=== PATIENT | male | born 1975 | race American Indian/Alaskan Native ===

== ENCOUNTER 2017-11-16 03:21 | Emergency (ER) | payer MEDICARE ==
[2017-11-16 07:01] LABS: Bilirubin,Urine NEG (Negative); Blood,Urine NEG (Negative); Color,Urine Yellow (Yellow); Mucus,Urine FEW /HPF; Protein,Urine <15 mg/dL mg/dL (Negative); Urobilinogen,Urine < 2.0 mg/dL (<2.0)
[2017-11-16 07:12] LABS: Benzodiazepines Screen,Urine PRESUMPTIVE NEGATIVE; Methadone Screen,Urine PRESUMPTIVE NEGATIVE; Opiate Screen,Urine PRESUMPTIVE NEGATIVE
[2017-11-16 07:27] LABS: Amphetamine Screen,Urine PRESUMPTIVE POSITIVE; Cannabinoid Screen,Urine PRESUMPTIVE POSITIVE; Cocaine Screen,Urine PRESUMPTIVE POSITIVE
[2017-11-16 07:57] LABS: Hemoglobin 13.2 gm/dl (11.8-15.2); Mean Corpuscular HGB Conc 33 % (32-34); Mean Corpuscular Hemoglobin 28 pg (28-32); Mean Corpuscular Volume 84 fl (84-94); Red Blood Count 4.78 M/mm3 (3.65-5.03); Red Cell Distribution Width 15.2 % (13.2-15.2)
[2017-11-16 08:07] LABS: BUN/Creatinine Ratio 11; Blood Urea Nitrogen 8 mg/dL (9-20); Calcium 8.6 mg/dL (8.4-10.2); Hemolysis Index 2
[2017-11-16 08:30] LABS: Alanine Aminotransferase 88 units/L (7-56); Albumin 3.4 g/dL (3.9-5)
[2017-11-16 08:35] LABS: Bilirubin,Direct < 0.2 mg/dL (0-0.2)
[2017-11-16 10:01] LABS: Anisocytosis 1+; Basophils % (Manual) 0 % (0.0-1.8); Total Cells Counted 100
[2017-11-16 10:02] LABS: Platelet Count 102 K/mm3 (140-440); Platelet Estimate Consistent w Auto
--- NOTE | 2017-11-16 10:26 | Consultation ---
History of Present Illness - Reason for Consult Consult date: 11/16/17 Reason for consult: Mental Health Evaluation Requesting physician: CRUZ CLEMENT - Chief Complaint Chief complaint: "I wanted to " - History of Present Psychiatric Illness 41 y.o. AA male presenting to [facility] for suicide attempt by taking 8 Trazodone pills. Today the patient is calm and cooperative during the assessment. He stated that he was a resident at the [facility] and was discharged. He stated that he was discharged because the staff accused him of selling heroin. He denies selling heroin, and felt like he was discharged from the [facility] [place] unfairly. He stated that he decided to take several Trazodone pills to kill himself. He continue to endorse SI's with a plan to overdose. He admitted to several suicidal attempts in the past. He stated that he has a hx of depression. He rate his depression 7/10, with 10 being the worse. He stated that his life isn't "good" and need a change. He denies HI's and AVH's. He denies erratic sleep and a poor appetite. He denies alcohol consumption (etoh). The patient's UDS is positive for cocaine, amphetamines, and marijuana. He denies a prescription for any stimulants. Medications and Allergies Allergies Allergy/AdvReac Type Severity Reaction Status Date / Time ibuprofen Allergy Shortness Verified 11/16/17 03:41 of Breath Home Medications Medication Instructions Recorded Confirmed Last Taken Type traZODone [Desyrel] 50 mg PO QHS 11/16/17 11/16/17 11/15/17 History Past psychiatric history - Past Medical History Past Medical History: HIV/AIDS, other (Hep C) Past Surgical History: No surgical history - past Psychiatric treatment and history Psych: Depression psychiatric treatment history: Multiple inpatient psy setting. Denies a fam psy hx. - Social History Social history: other (Homeless) Mental Status Exam - Vital signs Last Vital Signs Temp 98.7 F 11/16/17 03:41 Pulse 82 11/16/17 03:41 Resp 18 11/16/17 03:41 BP 149/88 11/16/17 03:41 Pulse Ox 98 11/16/17 03:41 - Exam Narrative exam: MSE: Appearance: calm, cooperative Behavior: regular eye contact Speech: regular rate and tone Mood: "depressed" Affect: congruent to mood Thought Process: circumstantial Thought Content: denies HI's and AVH's Motor Activity: sitting up in bed Cognition: A/O x3 Insight: variable Judgment: variable Results Result Diagrams: 11/16/17 03:54 11/16/17 03:54 Abnormal lab results 11/16/17 11/16/17 11/16/17 Range/Units 03:54 03:54 03:54 WBC 4.2 L (4.5-11.0) K/mm3 Plt Count 102 L (140-440) K/mm3 Seg Neuts % (Manual) 25.0 L (40.0-70.0) % Lymphocytes % (Manual) 57.0 H (13.4-35.0) % Monocytes % (Manual) 16.0 H (0.0-7.3) % Seg Neutrophils # Man 1.1 L (1.8-7.7) K/mm3 Sodium 136 L (137-145) mmol/L BUN 8 L (9-20) mg/dL Creatinine 0.7 L (0.8-1.5) mg/dL Glucose 116 H (75-100) mg/dL AST (5-40) units/L ALT (7-56) units/L Albumin (3.9-5) g/dL Salicylates < 0.3 L (2.8-20.0) mg/dL Acetaminophen (10.0-30.0) ug/mL 11/16/17 11/16/17 Range/Units 07:20 07:20 WBC (4.5-11.0) K/mm3 Plt Count (140-440) K/mm3 Seg Neuts % (Manual) (40.0-70.0) % Lymphocytes % (Manual) (13.4-35.0) % Monocytes % (Manual) (0.0-7.3) % Seg Neutrophils # Man (1.8-7.7) K/mm3 Sodium (137-145) mmol/L BUN (9-20) mg/dL Creatinine (0.8-1.5) mg/dL Glucose (75-100) mg/dL AST 71 H (5-40) units/L ALT 88 H (7-56) units/L Albumin 3.4 L (3.9-5) g/dL Salicylates (2.8-20.0) mg/dL Acetaminophen < 5.0 L (10.0-30.0) ug/mL All other labs normal. Assessment and Plan Assessment and plan: Impression: MDD, Severe Type. Substance Use DO (amphetamines, cocaine). Cannabis Use DO. Today the patient is calm and cooperative during the assessment. The patient endorses SI's. DDx: R/O Bipolar DO Recommendation/Plan: Initiated 1013 with pending placement to [facility] today. Per communication with the ER Physician, the patient is medically clear. Continue to monitor patient for serotonin syndrome.
[2017-11-16 10:35] VITALS: BP 138/78
--- NOTE | 2017-11-16 12:33 | Emergency Department Report ---
ED Psych HPI - General Chief Complaint: Psych Stated Complaint: SI Time Seen by Provider: 11/16/17 06:24 Source: patient, EMS Mode of arrival: Ambulatory - History of Present Illness Initial Comments: This is a 41 year old man who has been residing at the [facility] he stated since October 19. He states that he was discharged yesterday. He states that he is homeless and is depressed. He claims that he attempted suicide by taking 8 Trazodone pills. He is completely asymptomatic, calm and cooperative during the assessment. He stated that he was discharged because the staff accused him of selling heroin. Today he is positive for polysubstance abuse. He denies selling heroin, and [facility] He continues to endorse SI's to the mental health counselor with a plan to overdose. He admitted to several suicidal attempts in the past. He stated that he has a hx of depression. He rates his depression 7/10, with 10 being the worse per [place] the psychiatric nurse. -: year(s) Associated Psychiatric Symptoms: depression, suicidal ideation History of same: Yes Quality: constant Improves With: none Worsens With: none Context: recent drug abuse Associated Symptoms: denies other symptoms Treatments Prior to Arrival: none If Self Harm: admits thoughts of, intentional overdose - Related Data Home Medications Medication Instructions Recorded Confirmed Last Taken traZODone [Desyrel] 50 mg PO QHS 11/16/17 11/16/17 11/15/17 Allergies Allergy/AdvReac Type Severity Reaction Status Date / Time ibuprofen Allergy Shortness Verified 11/16/17 03:41 of Breath ED Review of Systems ROS: Stated complaint: SI Other details as noted in HPI Constitutional: denies: chills, fever Eyes: denies: eye pain, eye discharge, vision change ENT: denies: ear pain, throat pain Respiratory: denies: cough, shortness of breath, wheezing Cardiovascular: denies: chest pain, palpitations Endocrine: no symptoms reported Gastrointestinal: denies: abdominal pain, nausea, diarrhea Genitourinary: denies: urgency, dysuria Musculoskeletal: denies: back pain, joint swelling, arthralgia Skin: denies: rash, lesions Neurological: denies: headache, weakness, paresthesias Psychiatric: as per HPI, depression, suicidal thoughts. denies: anxiety Hematological/Lymphatic: denies: easy bleeding, easy bruising ED Past Medical Hx - Past Medical History Previous Medical History?: Yes Hx Liver Disease: Yes (Hep c) Hx HIV: Yes - Surgical History Past Surgical History?: Yes Additional Surgical History: boil in rectal area - Social History Smoking Status: Current Every Day Smoker Substance Use Type: Cocaine, Marijuana - Medications Home Medications: Home Medications Medication Instructions Recorded Confirmed Last Taken Type traZODone [Desyrel] 50 mg PO QHS 11/16/17 11/16/17 11/15/17 History ED Physical Exam - General Limitations: No Limitations General appearance: alert, in no apparent distress - Head Head exam: Present: atraumatic, normocephalic - Eye Eye exam: Present: normal appearance, PERRL, EOMI. Absent: scleral icterus - ENT ENT exam: Present: mucous membranes moist - Neck Neck exam: Present: normal inspection. Absent: tenderness, meningismus - Respiratory Respiratory exam: Present: normal lung sounds bilaterally. Absent: respiratory distress - Cardiovascular Cardiovascular Exam: Present: regular rate, normal rhythm. Absent: systolic murmur, diastolic murmur, rubs, gallop - GI/Abdominal GI/Abdominal exam: Present: soft, normal bowel sounds. Absent: distended, tenderness, guarding, rebound, rigid - Rectal Rectal exam: Present: deferred - Extremities Exam Extremities exam: Present: normal inspection - Back Exam Back exam: Present: normal inspection - Neurological Exam Neurological exam: Present: alert, oriented X3, CN II-XII intact. Absent: motor sensory deficit - Psychiatric Psychiatric exam: Present: normal affect, normal mood - Skin Skin exam: Present: warm, dry, intact, normal color. Absent: rash ED Course Vital Signs 11/16/17 11/16/17 03:41 10:34 Temperature 98.7 F 98.5 F Pulse Rate 82 81 Respiratory 18 18 Rate Blood Pressure 149/88 Blood Pressure 138/78 [Left] O2 Sat by Pulse 98 100 Oximetry - Reevaluation(s) Reevaluation #1: Seen by Darell. The patient is medically clear for psychiatric admission. He has chronic issues such as HIV and chronic hepatitis C. These do not require acute stabilization in the hospital at this time but certainly medical treatment in the future. 11/16/17 12:33 ED Medical Decision Making - Lab Data Result diagrams: 11/16/17 03:54 11/16/17 03:54 Laboratory Results - last 24 hr 11/16/17 11/16/17 11/16/17 03:51 03:51 03:54 WBC RBC Hgb Hct MCV MCH MCHC RDW Plt Count Bru[place] % (Auto) Add Manual Diff Total Counted Seg Neutrophils % Seg Neuts % (Manual) Band Neutrophils % Lymphocytes % (Manual) Reactive Lymphs % (Man) Monocytes % (Manual) Eosinophils % (Manual) Basophils % (Manual) Metamyelocytes % Myelocytes % Promyelocytes % Blast Cells % Nucleated RBC % Seg Neutrophils # Man Band Neutrophils # Lymphocytes # (Manual) Abs React Lymphs (Man) Monocytes # (Manual) Eosinophils # (Manual) Basophils # (Manual) Metamyelocytes # Myelocytes # Promyelocytes # Blast Cells # WBC Morphology Hypersegmented Neuts Hyposegmented Neuts Hypogranular Neuts Smudge Cells Toxic Granulation Toxic Vacuolation Dohle Bodies Pelger-Huet Anomaly Lenore Rods Platelet Estimate Clumped Platelets Plt Clumps, EDTA Large Platelets Giant Platelets Platelet Satelliting Plt Morphology Comment RBC Morphology Dimorphic RBCs Polychromasia Hypochromasia Poikilocytosis Anisocytosis Microcytosis Macrocytosis Spherocytes Pappenheimer Bodies Sickle Cells Target Cells Tear Drop Cells Ovalocytes Helmet Cells [place] Bodies [place] Rings Dearing Cells Bite Cells Crenated Cell Elliptocytes Acanthocytes (Spur) Rouleaux Hemoglobin C Crystals Schistocytes Malaria parasites Familia Bodies Hem Pathologist Commnt Sodium Potassium Chloride Carbon Dioxide Anion Gap BUN Creatinine Estimated GFR BUN/Creatinine Ratio Glucose Calcium Total Bilirubin Direct Bilirubin Indirect Bilirubin AST ALT Alkaline Phosphatase Total Protein Albumin Albumin/Globulin Ratio Urine Color Yellow Urine Turbidity Clear Urine pH 5.0 Ur Specific [place] 1.021 Urine Protein <15 mg/dl Urine Glucose (UA) Neg Urine Ketones Neg Urine Blood Neg Urine Nitrite Neg Urine Bilirubin Neg Urine Urobilinogen < 2.0 Ur Leukocyte Esterase Neg Urine WBC (Auto) 1.0 Urine RBC (Auto) 2.0 U Epithel Cells (Auto) < 1.0 Urine Mucus Few Salicylates < 0.3 L Urine Opiates Screen Presumptive negative Urine Methadone Screen Presumptive negative Acetaminophen Ur Barbiturates Screen Presumptive negative Ur Phencyclidine Scrn Presumptive negative Ur Amphetamines Screen Presumptive positive U Benzodiazepines Scrn Presumptive negative Urine Cocaine Screen Presumptive positive U Marijuana (THC) Screen Presumptive positive Drugs of Abuse Note Disclamer Plasma/Serum Alcohol 11/16/17 11/16/17 11/16/17 03:54 03:54 03:54 WBC 4.2 L RBC 4.78 Hgb 13.2 Hct 40.0 MCV 84 MCH 28 MCHC 33 RDW 15.2 Plt Count 102 L Brule % (Auto) Bobbin Cleaning Machine Operator Add Manual Diff Complete Total Counted 100 Seg Neutrophils % Bobbin Cleaning Machine Operator Seg Neuts % (Manual) 25.0 L Band Neutrophils % 0 Lymphocytes % (Manual) 57.0 H Reactive Lymphs % (Man) 0 Monocytes % (Manual) 16.0 H Eosinophils % (Manual) 2.0 Basophils % (Manual) 0 Metamyelocytes % 0 Myelocytes % 0 Promyelocytes % 0 Blast Cells % 0 Nucleated RBC % Not Reportable Seg Neutrophils # Man 1.1 L Band Neutrophils # 0.0 Lymphocytes # (Manual) 2.4 Abs React Lymphs (Man) 0.0 Monocytes # (Manual) 0.7 Eosinophils # (Manual) 0.1 Basophils # (Manual) 0.0 Metamyelocytes # 0.0 Myelocytes # 0.0 Promyelocytes # 0.0 Blast Cells # 0.0 WBC Morphology Not Reportable Hypersegmented Neuts Not Reportable Hyposegmented Neuts Not Reportable Hypogranular Neuts Not Reportable Smudge Cells Not Reportable Toxic Granulation Not Reportable Toxic Vacuolation Not Reportable Dohle Bodies Not Reportable Pelger-Huet Anomaly Not Reportable Lenore Rods Not Reportable Platelet Estimate Consistent w auto Clumped Platelets Not Reportable Plt Clumps, EDTA Not Reportable Large Platelets Not Reportable Giant Platelets Not Reportable Platelet Satelliting Not Reportable Plt Morphology Comment Not Reportable RBC Morphology Not Reportable Dimorphic RBCs Not Reportable Polychromasia Not Reportable Hypochromasia Not Reportable Poikilocytosis Not Reportable Anisocytosis 1+ Microcytosis Not Reportable Macrocytosis Not Reportable Spherocytes Not Reportable Pappenheimer Bodies Not Reportable Sickle Cells Not Reportable Target Cells Not Reportable Tear Drop Cells Not Reportable Ovalocytes Not Reportable Helmet Cells Not Reportable [place] Bodies Not Reportable [place] Rings Not Reportable Dearing Cells Not Reportable Bite Cells Not Reportable Crenated Cell Not Reportable Elliptocytes Not Reportable Acanthocytes (Spur) Not Reportable Rouleaux Not Reportable Hemoglobin C Crystals Not Reportable Schistocytes Not Reportable Malaria parasites Not Reportable Familia Bodies Not Reportable Hem Pathologist Commnt No Sodium 136 L Potassium 3.9 Chloride 103.2 Carbon Dioxide 25 Anion Gap 12 BUN 8 L Creatinine 0.7 L Estimated GFR > 60 BUN/Creatinine Ratio 11 Glucose 116 H Calcium 8.6 Total Bilirubin Direct Bilirubin Indirect Bilirubin AST ALT Alkaline Phosphatase Total Protein Albumin Albumin/Globulin Ratio Urine Color Urine Turbidity Urine pH Ur Specific [place] Urine Protein Urine Glucose (UA) Urine Ketones Urine Blood Urine Nitrite Urine Bilirubin Urine Urobilinogen Ur Leukocyte Esterase Urine WBC (Auto) Urine RBC (Auto) U Epithel Cells (Auto) Urine Mucus Salicylates Urine Opiates Screen Urine Methadone Screen Acetaminophen Ur Barbiturates Screen Ur Phencyclidine Scrn Ur Amphetamines Screen U Benzodiazepines Scrn Urine Cocaine Screen U Marijuana (THC) Screen Drugs of Abuse Note Plasma/Serum Alcohol < 0.01 11/16/17 11/16/17 07:20 07:20 WBC RBC Hgb Hct MCV MCH MCHC RDW Plt Count [place] % (Auto) Add Manual Diff Total Counted Seg Neutrophils % Seg Neuts % (Manual) Band Neutrophils % Lymphocytes % (Manual) Reactive Lymphs % (Man) Monocytes % (Manual) Eosinophils % (Manual) Basophils % (Manual) Metamyelocytes % Myelocytes % Promyelocytes % Blast Cells % Nucleated RBC % Seg Neutrophils # Man Band Neutrophils # Lymphocytes # (Manual) Abs React Lymphs (Man) Monocytes # (Manual) Eosinophils # (Manual) Basophils # (Manual) Metamyelocytes # Myelocytes # Promyelocytes # Blast Cells # WBC Morphology Hypersegmented Neuts Hyposegmented Neuts Hypogranular Neuts Smudge Cells Toxic Granulation Toxic Vacuolation Dohle Bodies Pelger-Huet Anomaly Lenore Rods Platelet Estimate Clumped Platelets Plt Clumps, EDTA Large Platelets Giant Platelets Platelet Satelliting Plt Morphology Comment RBC Morphology Dimorphic RBCs Polychromasia Hypochromasia Poikilocytosis Anisocytosis Microcytosis Macrocytosis Spherocytes Pappenheimer Bodies Sickle Cells Target Cells Tear Drop Cells Ovalocytes Helmet Cells Boo-[place] Bodies [place] Rings [place]andel Cells Bite Cells Crenated Cell Elliptocytes Acanthocytes (Spur) Rouleaux Hemoglobin C Crystals Schistocytes Malaria parasites Familia Bodies Hem Pathologist Commnt Sodium Potassium Chloride Carbon Dioxide Anion Gap BUN Creatinine Estimated GFR BUN/Creatinine Ratio Glucose Calcium Total Bilirubin 0.30 Direct Bilirubin < 0.2 Indirect Bilirubin 0.1 AST 71 H ALT 88 H Alkaline Phosphatase 73 Total Protein 7.4 Albumin 3.4 L Albumin/Globulin Ratio 0.9 Urine Color Urine Turbidity Urine pH Ur Specific [place] Urine Protein Urine Glucose (UA) Urine Ketones Urine Blood Urine Nitrite Urine Bilirubin Urine Urobilinogen Ur Leukocyte Esterase Urine WBC (Auto) Urine RBC (Auto) U Epithel Cells (Auto) Urine Mucus Salicylates Urine Opiates Screen Urine Methadone Screen Acetaminophen < 5.0 L Ur Barbiturates Screen Ur Phencyclidine Scrn Ur Amphetamines Screen U Benzodiazepines Scrn Urine Cocaine Screen U Marijuana (THC) Screen Drugs of Abuse Note Plasma/Serum Alcohol - EKG Data -: EKG Interpreted by Me EKG shows normal: sinus rhythm, axis, intervals, QRS complexes, ST-T waves Rate: normal - EKG Data Interpretation: LVH (suggestive of LVH) Critical care attestation.: If time is entered above; I have spent that time in minutes in the direct care of this critically ill patient, excluding procedure time. ED Disposition Clinical Impression: Depression Qualifiers: Depression Type: major depressive disorder Major depression recurrence: recurrent Active/Remission status: currently active Major depression episode severity: moderate Qualified Code(s): F33.1 - Major depressive disorder, recurrent, moderate Suicide gesture Qualifiers: Encounter type: initial encounter Qualified Code(s): X83.8XXA - Intentional self-harm by other specified means, initial encounter Disposition: DC/TX-65 PSY HOSP/PSY UNIT Is pt being admited?: No Does the pt Need Aspirin: No Condition: Stable Referrals: JUANITA RASHID MD [Primary Care Provider] - 3-5 Days Time of Disposition: 13:02
== END 2017-11-17 03:27 ==
LOC: ED 03:21
DX: F32.9 Major depressive disorder, single episode, unspecified (principal); F17.200 Nicotine dependence, unspecified, uncomplicated; F12.10 Cannabis abuse, uncomplicated; F14.10 Cocaine abuse, uncomplicated; Z88.6 Allergy status to analgesic agent
CPT/HCPCS: 36415; 80048; 80074; 80307; 81001; 85007; 85025; 93005; 93010; 99285; G0480; 80320

== ENCOUNTER 2017-11-24 03:49 | Emergency (ER) | payer MEDICARE ==
[2017-11-24 04:18] LABS: Basophils % (Auto) 0.5 % (0.0-1.8); Eosinophils # (Auto) 0.1 K/mm3 (0.0-0.4); Eosinophils % (Auto) 0.9 % (0.0-4.3); Hematocrit 45.3 % (35.5-45.6); Hemoglobin 14.9 gm/dl (11.8-15.2); Lymphocytes # (Auto) 2.4 K/mm3 (1.2-5.4); Lymphocytes % (Auto) 41.5 % (13.4-35.0); Mean Corpuscular HGB Conc 33 % (32-34); Mean Corpuscular Hemoglobin 28 pg (28-32); Mean Corpuscular Volume 84 fl (84-94); Monocytes # (Auto) 0.9 K/mm3 (0.0-0.8); Monocytes % (Auto) 14.7 % (0.0-7.3); Platelet Count 141 K/mm3 (140-440); Red Blood Count 5.37 M/mm3 (3.65-5.03); Red Cell Distribution Width 15.1 % (13.2-15.2)
[2017-11-24 04:46] LABS: BUN/Creatinine Ratio 17; Blood Urea Nitrogen 15 mg/dL (9-20); Calcium 8.7 mg/dL (8.4-10.2); Hemolysis Index 7
[2017-11-24 07:45] LABS: Bilirubin,Urine NEG (Negative); Blood,Urine NEG (Negative); Color,Urine Yellow (Yellow); Mucus,Urine FEW /HPF; Protein,Urine <15 mg/dL mg/dL (Negative)
[2017-11-24 07:57] LABS: Benzodiazepines Screen,Urine PRESUMPTIVE NEGATIVE; Methadone Screen,Urine PRESUMPTIVE NEGATIVE; Opiate Screen,Urine PRESUMPTIVE NEGATIVE
[2017-11-24 08:11] LABS: Amphetamine Screen,Urine PRESUMPTIVE POSITIVE; Cannabinoid Screen,Urine PRESUMPTIVE POSITIVE; Cocaine Screen,Urine PRESUMPTIVE POSITIVE
[2017-11-24] MEDS ORDERED: TYLENOL PO PRN (08:27)
[2017-11-24] MEDS ORDERED: MILK OF MAGNESIA PO PRN (08:27)
[2017-11-24] MEDS ORDERED: ALUM-MAG HYDROX-SIMETH 200-200-20MG/5ML PO PRN (08:27)
[2017-11-24] MEDS ORDERED: ATIVAN PO ONE (08:28)
[2017-11-24] MEDS ORDERED: GEODON PO ONE (08:28)
--- NOTE | 2017-11-24 08:33 | Emergency Department Report ---
ED Psych HPI - General Chief Complaint: Psych Stated Complaint: MEDICAL CLEARANCE Time Seen by Provider: 11/24/17 08:19 Source: patient, EMS Mode of arrival: Ambulatory - History of Present Illness Initial Comments: 5-year-old male with chronic psychiatric disorder and polysubstance abuse. He states he is an inpatient at [facility] up until Saturday when he was going to be transferred to the [facility]. However, he states there was no rooms. He was sent to a hotel. Apparently that didn't work out and he ended up with a friend. He states that he is frustrated and doesn't think he is going to make his next birthday. He has a history of prior prescription for Geodon and trazodone. He likely has bipolar disorder. He has no specific physical complaints at this time. He expresses frustration and concern about his long- term life expectancy. MD Complaint: other -: month(s) Associated Psychiatric Symptoms: depression History of same: Yes Quality: constant Improves With: none Worsens With: none Context: recent drug abuse, not taking psychiatric (probably not) Associated Symptoms: denies other symptoms - Related Data Home Medications Medication Instructions Recorded Confirmed Last Taken traZODone [Desyrel] 50 mg PO QHS 11/16/17 11/16/17 11/15/17 Allergies Allergy/AdvReac Type Severity Reaction Status Date / Time ibuprofen Allergy Shortness Verified 11/16/17 03:41 of Breath ED Review of Systems ROS: Stated complaint: MEDICAL CLEARANCE Other details as noted in HPI Constitutional: denies: chills, fever Eyes: denies: eye pain, eye discharge, vision change ENT: denies: ear pain, throat pain Respiratory: denies: cough, shortness of breath, wheezing Cardiovascular: denies: chest pain, palpitations Endocrine: no symptoms reported Gastrointestinal: other (states has not been eating well but is able to do so and is requesting to eat). denies: abdominal pain, nausea, vomiting, diarrhea Genitourinary: other (states urine is clear and he is urinating amply.). denies : urgency, dysuria Musculoskeletal: denies: back pain, joint swelling, arthralgia Skin: denies: rash, lesions Neurological: denies: headache, weakness, paresthesias Psychiatric: as per HPI, anxiety, depression Hematological/Lymphatic: denies: easy bleeding, easy bruising ED Past Medical Hx - Past Medical History Previous Medical History?: Yes Hx Liver Disease: Yes (Hep c) Hx HIV: Yes - Surgical History Past Surgical History?: Yes Additional Surgical History: boil in rectal area - Social History Smoking Status: Current Every Day Smoker Substance Use Type: Alcohol, Cocaine, Marijuana - Medications Home Medications: Home Medications Medication Instructions Recorded Confirmed Last Taken Type traZODone [Desyrel] 50 mg PO QHS 11/16/17 11/16/17 11/15/17 History ED Physical Exam - General Limitations: No Limitations General appearance: alert, in no apparent distress - Head Head exam: Present: atraumatic, normocephalic - Eye Eye exam: Present: normal appearance, PERRL, EOMI. Absent: scleral icterus - ENT ENT exam: Present: mucous membranes moist - Neck Neck exam: Present: normal inspection - Respiratory Respiratory exam: Present: normal lung sounds bilaterally. Absent: respiratory distress - Cardiovascular Cardiovascular Exam: Present: regular rate, normal rhythm. Absent: systolic murmur, diastolic murmur, rubs, gallop - GI/Abdominal GI/Abdominal exam: Present: soft, normal bowel sounds. Absent: distended, tenderness, guarding, rebound, rigid - Rectal Rectal exam: Present: deferred - Extremities Exam Extremities exam: Present: normal inspection - Back Exam Back exam: Present: normal inspection - Neurological Exam Neurological exam: Present: alert, oriented X3, CN II-XII intact. Absent: motor sensory deficit - Psychiatric Psychiatric exam: Present: depressed, agitated - Skin Skin exam: Present: warm, dry, intact, normal color. Absent: rash ED Course Vital Signs 11/24/17 11/24/17 03:49 03:52 Temperature 97.4 F L 97.4 F L Pulse Rate 74 72 Respiratory 18 18 Rate Blood Pressure 152/107 152/107 O2 Sat by Pulse 99 99 Oximetry - Reevaluation(s) Reevaluation #1: Discussed with mental health counselor. We will search for placement. 11/24/17 08:31 ED Medical Decision Making - Lab Data Result diagrams: 11/24/17 04:03 11/24/17 04:03 Laboratory Results - last 24 hr 11/24/17 11/24/17 11/24/17 04:03 04:03 04:03 WBC RBC Hgb Hct MCV MCH MCHC RDW Plt Count Lymph % (Auto) [place] % (Auto) Eos % (Auto) Baso % (Auto) Lymph # [place] # Eos # Baso # Seg Neutrophils % Seg Neutrophils # Sodium 138 Potassium 4.2 Chloride 100.6 Carbon Dioxide 26 Anion Gap 16 BUN 15 Creatinine 0.9 Estimated GFR > 60 BUN/Creatinine Ratio 17 Glucose 72 L Calcium 8.7 Urine Color Urine Turbidity Urine pH Ur Specific [place] Urine Protein Urine Glucose (UA) Urine Ketones Urine Blood Urine Nitrite Urine Bilirubin Urine Urobilinogen Ur Leukocyte Esterase Urine WBC (Auto) Urine RBC (Auto) U Epithel Cells (Auto) Urine Mucus Salicylates < 0.3 L Urine Opiates Screen Urine Methadone Screen Acetaminophen < 5.0 L Ur Barbiturates Screen Ur Phencyclidine Scrn Ur Amphetamines Screen U Benzodiazepines Scrn Urine Cocaine Screen U Marijuana (THC) Screen Drugs of Abuse Note Plasma/Serum Alcohol 11/24/17 11/24/17 11/24/17 04:03 04:03 07:10 WBC 5.9 RBC 5.37 H Hgb 14.9 Hct 45.3 MCV 84 MCH 28 MCHC 33 RDW 15.1 Plt Count 141 Lymph % (Auto) 41.5 H [place] % (Auto) 14.7 H Eos % (Auto) 0.9 Baso % (Auto) 0.5 Lymph # 2.4 [place] # 0.9 H Eos # 0.1 Baso # 0.0 Seg Neutrophils % 42.4 Seg Neutrophils # 2.5 Sodium Potassium Chloride Carbon Dioxide Anion Gap BUN Creatinine Estimated GFR BUN/Creatinine Ratio Glucose Calcium Urine Color Yellow Urine Turbidity Clear Urine pH 5.0 Ur Specific [place] 1.026 Urine Protein <15 mg/dl Urine Glucose (UA) Neg Urine Ketones Neg Urine Blood Neg Urine Nitrite Neg Urine Bilirubin Neg Urine Urobilinogen 2.0 Ur Leukocyte Esterase Neg Urine WBC (Auto) 1.0 Urine RBC (Auto) 8.0 U Epithel Cells (Auto) < 1.0 Urine Mucus Few Salicylates Urine Opiates Screen Urine Methadone Screen Acetaminophen Ur Barbiturates Screen Ur Phencyclidine Scrn Ur Amphetamines Screen U Benzodiazepines Scrn Urine Cocaine Screen U Marijuana (THC) Screen Drugs of Abuse Note Plasma/Serum Alcohol < 0.01 11/24/17 07:10 WBC RBC Hgb Hct MCV MCH MCHC RDW Plt Count Lymph % (Auto) [place] % (Auto) Eos % (Auto) Baso % (Auto) Lymph # [place] # Eos # Baso # Seg Neutrophils % Seg Neutrophils # Sodium Potassium Chloride Carbon Dioxide Anion Gap BUN Creatinine Estimated GFR BUN/Creatinine Ratio Glucose Calcium Urine Color Urine Turbidity Urine pH Ur Specific [place] Urine Protein Urine Glucose (UA) Urine Ketones Urine Blood Urine Nitrite Urine Bilirubin Urine Urobilinogen Ur Leukocyte Esterase Urine WBC (Auto) Urine RBC (Auto) U Epithel Cells (Auto) Urine Mucus Salicylates Urine Opiates Screen Presumptive negative Urine Methadone Screen Presumptive negative Acetaminophen Ur Barbiturates Screen Presumptive negative Ur Phencyclidine Scrn Presumptive negative Ur Amphetamines Screen Presumptive positive U Benzodiazepines Scrn Presumptive negative Urine Cocaine Screen Presumptive positive U Marijuana (THC) Screen Presumptive positive Drugs of Abuse Note Disclamer Plasma/Serum Alcohol Critical care attestation.: If time is entered above; I have spent that time in minutes in the direct care of this critically ill patient, excluding procedure time. ED Disposition Clinical Impression: HIV positive, Polysubstance abuse Depression Qualifiers: Depression Type: unspecified Qualified Code(s): F32.9 - Major depressive disorder, single episode, unspecified Bipolar disorder Qualifiers: Active/Remission status: currently active Current bipolar episode type: depressed Current episode severity: severe Psychotic features: without psychotic features Qualified Code(s): F31.4 - Bipolar disorder, current episode depressed, severe, without psychotic features Disposition: DC/TX-65 PSY HOSP/PSY UNIT Is pt being admited?: No Does the pt Need Aspirin: No Condition: Stable Referrals: JUANITA RASHID MD [Primary Care Provider] - 3-5 Days Time of Disposition: 08:34
[2017-11-24 16:03] VITALS: BP 144/84
== END 2017-11-24 16:00 ==
LOC: ED 03:49
DX: F32.9 Major depressive disorder, single episode, unspecified (principal); F19.10 Other psychoactive substance abuse, uncomplicated; F31.4 Bipolar disorder, current episode depressed, severe, without psychotic features; F14.10 Cocaine abuse, uncomplicated; F17.200 Nicotine dependence, unspecified, uncomplicated
CPT/HCPCS: 36415; 80048; 80307; 81001; 85025; 99285; G0480; 80320

== ENCOUNTER 2017-11-30 12:04 | Emergency (ER) | payer MEDICARE ==
--- NOTE | 2017-11-30 12:44 | Emergency Department Report ---
ED Psych HPI - General Chief Complaint: Psych Stated Complaint: SUICIDAL ATTEMPT Time Seen by Provider: 11/30/17 12:19 Source: EMS Mode of arrival: Stretcher - History of Present Illness Initial Comments: 42 -year-old male with schizoaffective says he tried to overdose on cocaine today it's his birthday and he doesny want to live anymore Complaint: suicidal ideation, feels depressed -: Gradual Associated Psychiatric Symptoms: depression, suicidal ideation History of same: Yes Associated Symptoms: denies other symptoms. denies: confusion, headache, shortness of breath, nausea, vomiting, syncope, insomnia - Related Data Home Medications Medication Instructions Recorded Confirmed Last Taken Hydrochlorothiazide 12.5 mg PO DAILY 11/30/17 11/30/17 Unknown Prazosin HCl 2 mg PO DAILY 11/30/17 11/30/17 Unknown Sertraline HCl 50 mg PO DAILY 11/30/17 11/30/17 Unknown Trazodone HCl 200 mg PO QHS 11/30/17 11/30/17 Unknown Allergies Allergy/AdvReac Type Severity Reaction Status Date / Time ibuprofen Allergy Shortness Verified 11/16/17 03:41 of Breath ED Review of Systems ROS: Stated complaint: SUICIDAL ATTEMPT Other details as noted in HPI Comment: All other systems reviewed and negative Constitutional: denies: diaphoresis, fever, malaise ENT: denies: dental pain, hearing loss, epistaxis Respiratory: denies: orthopnea, shortness of breath, SOB with exertion, SOB at rest, stridor Cardiovascular: denies: chest pain, palpitations, dyspnea on exertion, orthopnea , edema, syncope Endocrine: denies: excessive sweating, flushing Gastrointestinal: denies: abdominal pain, nausea, vomiting, diarrhea, constipation, hematemesis, melena, hematochezia Genitourinary: denies: urgency, hematuria, discharge Skin: denies: change in color Neurological: denies: headache, weakness, numbness, paresthesias, confusion, abnormal gait, vertigo Psychiatric: anxiety, depression, suicidal thoughts. denies: auditory hallucinations, visual hallucinations, homicidal thoughts Hematological/Lymphatic: denies: easy bleeding ED Past Medical Hx - Past Medical History Previous Medical History?: Yes Hx Hypertension: Yes Hx Liver Disease: Yes (Hep c) Hx Psychiatric Treatment: Yes (depression) Hx HIV: Yes - Surgical History Past Surgical History?: Yes Additional Surgical History: boil in rectal area - Social History Smoking Status: Current Every Day Smoker Substance Use Type: Cocaine, Marijuana - Medications Home Medications: Home Medications Medication Instructions Recorded Confirmed Last Taken Type Hydrochlorothiazide 12.5 mg PO DAILY 11/30/17 11/30/17 Unknown History Prazosin HCl 2 mg PO DAILY 11/30/17 11/30/17 Unknown History Sertraline HCl 50 mg PO DAILY 11/30/17 11/30/17 Unknown History Trazodone HCl 200 mg PO QHS 11/30/17 11/30/17 Unknown History ED Physical Exam - General Limitations: No Limitations General appearance: alert, in no apparent distress, anxious - Head Head exam: Present: atraumatic, normocephalic - Eye Eye exam: Present: normal appearance, PERRL, EOMI - ENT ENT exam: Present: normal exam, normal orophraynx - Neck Neck exam: Present: normal inspection. Absent: tenderness, meningismus - Respiratory Respiratory exam: Present: normal lung sounds bilaterally. Absent: respiratory distress, wheezes, rales, rhonchi, stridor, chest wall tenderness, accessory muscle use, decreased breath sounds, prolonged expiratory - Cardiovascular Cardiovascular Exam: Present: regular rate, normal rhythm, normal heart sounds - GI/Abdominal GI/Abdominal exam: Present: soft. Absent: distended, tenderness, guarding, rebound, rigid, mass, pulsatile mass - Extremities Exam Extremities exam: Present: normal inspection, normal capillary refill. Absent: calf tenderness - Back Exam Back exam: Present: normal inspection. Absent: CVA tenderness (L), muscle spasm , paraspinal tenderness, vertebral tenderness - Neurological Exam Neurological exam: Present: alert, oriented X3, CN II-XII intact. Absent: motor sensory deficit - Psychiatric Psychiatric exam: Present: depressed, agitated, anxious, flat affect, suicidal ideation ED Course Vital Signs 11/30/17 11/30/17 11/30/17 12:08 12:13 12:16 Temperature 98.3 F Pulse Rate 91 H 91 H 89 Respiratory 16 11 L 16 Rate Blood Pressure 138/89 138/89 Blood Pressure [Right] O2 Sat by Pulse 97 Oximetry 11/30/17 11/30/17 11/30/17 12:30 12:31 12:40 Temperature Pulse Rate 88 88 Respiratory 17 24 22 Rate Blood Pressure 138/89 Blood Pressure 138/89 [Right] O2 Sat by Pulse 98 98 98 Oximetry 11/30/17 11/30/17 11/30/17 12:45 13:00 13:15 Temperature Pulse Rate 93 H 94 H 81 Respiratory 17 21 16 Rate Blood Pressure 138/89 138/89 138/89 Blood Pressure [Right] O2 Sat by Pulse 97 96 99 Oximetry 11/30/17 11/30/17 11/30/17 13:31 13:45 14:01 Temperature Pulse Rate 84 84 86 Respiratory 21 18 20 Rate Blood Pressure 138/89 138/89 138/89 Blood Pressure [Right] O2 Sat by Pulse 99 99 98 Oximetry 11/30/17 11/30/17 11/30/17 14:15 14:31 14:45 Temperature Pulse Rate 85 85 83 Respiratory 20 23 17 Rate Blood Pressure 138/89 138/89 138/89 Blood Pressure [Right] O2 Sat by Pulse 98 97 98 Oximetry 11/30/17 11/30/17 11/30/17 15:01 15:15 15:31 Temperature Pulse Rate 83 82 81 Respiratory 23 32 H 24 Rate Blood Pressure 138/89 138/89 138/89 Blood Pressure [Right] O2 Sat by Pulse 97 97 98 Oximetry 11/30/17 11/30/17 11/30/17 15:45 15:55 16:00 Temperature Pulse Rate 83 80 Respiratory 30 H 17 27 H Rate Blood Pressure 138/89 152/99 Blood Pressure 137/91 [Right] O2 Sat by Pulse 98 98 95 Oximetry 11/30/17 11/30/17 11/30/17 16:15 16:30 16:45 Temperature Pulse Rate 87 87 83 Respiratory 19 16 17 Rate Blood Pressure 137/91 148/97 145/96 Blood Pressure [Right] O2 Sat by Pulse 91 97 96 Oximetry 11/30/17 11/30/17 11/30/17 17:00 17:15 17:31 Temperature Pulse Rate 92 H 83 83 Respiratory 35 H 17 20 Rate Blood Pressure 151/99 151/99 151/99 Blood Pressure [Right] O2 Sat by Pulse 92 99 99 Oximetry 11/30/17 11/30/17 11/30/17 17:45 18:01 18:15 Temperature Pulse Rate 84 Respiratory 25 H 12 13 Rate Blood Pressure 151/99 151/99 139/87 Blood Pressure [Right] O2 Sat by Pulse 100 99 Oximetry 11/30/17 11/30/17 11/30/17 18:30 18:45 19:00 Temperature Pulse Rate Respiratory 15 19 20 Rate Blood Pressure 144/85 138/87 146/93 Blood Pressure [Right] O2 Sat by Pulse 100 99 99 Oximetry 11/30/17 11/30/17 11/30/17 19:15 19:31 19:45 Temperature Pulse Rate Respiratory 12 25 H 11 L Rate Blood Pressure 142/93 168/100 168/100 Blood Pressure [Right] O2 Sat by Pulse 99 99 98 Oximetry 11/30/17 11/30/17 19:53 20:00 Temperature Pulse Rate 80 Respiratory 20 Rate Blood Pressure 139/88 145/87 Blood Pressure [Right] O2 Sat by Pulse 99 99 Oximetry ED Medical Decision Making - Lab Data Result diagrams: 11/30/17 12:53 11/30/17 12:53 - EKG Data -: EKG Interpreted by Me EKG shows normal: sinus rhythm - EKG Data Interpretation: no acute changes - Radiology Data Radiology results: report reviewed - Medical Decision Making Provisional suicide ideation he was given IV fluids normal renal function, he did have elevated CK however this is not trending up he is medically cleared for further evaluation of suicidal ideation, nl renal funx, +cocaine Critical care attestation.: If time is entered above; I have spent that time in minutes in the direct care of this critically ill patient, excluding procedure time. ED Disposition Clinical Impression: Suicidal ideation, Cocaine abuse Disposition: DC/TX-65 PSY HOSP/PSY UNIT Is pt being admited?: No Condition: Stable Referrals: PRIMARY CARE, [Primary Care Provider] - 3-5 Days Time of Disposition: 21:37
[2017-11-30 13:17] LABS: Basophils % (Auto) 0.4 % (0.0-1.8); Eosinophils % (Auto) 0.1 % (0.0-4.3); Hematocrit 42.1 % (35.5-45.6); Lymphocytes # (Auto) 2.1 K/mm3 (1.2-5.4); Lymphocytes % (Auto) 31.8 % (13.4-35.0); Mean Corpuscular HGB Conc 33 % (32-34); Mean Corpuscular Hemoglobin 28 pg (28-32); Mean Corpuscular Volume 84 fl (84-94); Monocytes # (Auto) 0.8 K/mm3 (0.0-0.8); Platelet Count 129 K/mm3 (140-440); Red Blood Count 5.01 M/mm3 (3.65-5.03); Red Cell Distribution Width 14.5 % (13.2-15.2)
[2017-11-30 13:40] LABS: BUN/Creatinine Ratio 19; Blood Urea Nitrogen 17 mg/dL (9-20); Calcium 9.3 mg/dL (8.4-10.2); Hemolysis Index 5
[2017-11-30 13:57] LABS: Bilirubin,Urine NEG (Negative); Blood,Urine NEG (Negative); Color,Urine Yellow (Yellow); Mucus,Urine 2+ /HPF; Urobilinogen,Urine < 2.0 mg/dL (<2.0)
[2017-11-30 14:19] LABS: Amphetamine Screen,Urine PRESUMPTIVE NEGATIVE; Benzodiazepines Screen,Urine PRESUMPTIVE NEGATIVE; Cannabinoid Screen,Urine PRESUMPTIVE NEGATIVE; Methadone Screen,Urine PRESUMPTIVE NEGATIVE; Opiate Screen,Urine PRESUMPTIVE NEGATIVE
[2017-11-30 14:32] LABS: Cocaine Screen,Urine PRESUMPTIVE POSITIVE
[2017-11-30] MEDS ORDERED: NACL 0.9% 1000 ML 1,000 ML IV ONE (17:00)
[2017-12-01] MEDS ORDERED: MILK OF MAGNESIA PO PRN (08:35)
[2017-12-01] MEDS ORDERED: TYLENOL ONE (08:35)
[2017-12-01] MEDS ORDERED: ALUM-MAG HYDROX-SIMETH 200-200-20MG/5ML PO PRN (08:35)
[2017-12-01] MEDS: TYLENOL PO PRN ×2 (08:42→18:46)
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
[2017-12-02] MEDS ORDERED: AMBIEN ONE (00:07)
[2017-12-02] MEDS ORDERED: AMBIEN PO ONE (00:24)
[2017-12-02] MEDS ORDERED: NACL 0.9% 1000 ML 1,000 ML IV ONE (09:30)
[2017-12-02] MEDS ORDERED: NACL 0.9% 1000 ML 1,000 ML ONE (09:30)
--- NOTE | 2017-12-02 13:33 | Progress Note ---
Subjective - Reason for Consult Consult date: 12/02/17 Reason for consult: Psychiatry Follow-up - Chief Complaint Chief complaint: 42-year-old -[place] male who presents to the emergency room after a suicide attempt. The patient has a past psychiatric history of schizoaffective disorder bipolar type. Today the patient is cooperative, but agitated during the assessment. He stated that his main issue is being homeless and the way "people" lie to him. He was upset that both his parents are . He continue to endorse SI's with a plan to overdose opiates. He stated that he cannot sleep because he worries about his future. He denies HI's and AVH's. He denies any side effects of his medication. Mental Status Exam - Vital signs Last Vital Signs Temp 98.4 F 12/02/17 10:05 Pulse 83 12/02/17 10:05 Resp 20 12/02/17 10:05 BP 157/98 12/02/17 10:05 Pulse Ox 99 12/02/17 10:05 - Exam Narrative exam: MSE: Appearance: cooperative, anxious Behavior: regular eye contact Speech: regular rate and tone Mood: agitated Affect: congruent to mood Thought Process: circumstantial Thought Content: denies HI's and AVH's Motor Activity: sitting up in bed Cognition: A/O x 3 Insight: variable Judgment: variable Assessment and Plan Impression: Hx of Schizoaffective DO. Substance Use DO (cocaine). Today the patient is cooperative, but agitated during the assessment. The patient endorses SI's. DDx: R/O Bipolar DO, R/O MDD Recommendation/Plan: Continue 1013 with placement to inpatient psy services. Increase Seroquel to 100 mg PO HS for mood. Discussed possible metabolic side effects of Seroquel with patient. Discussed generalized coping skills with patient.
[2017-12-03] MEDS: TYLENOL PO PRN (04:44)
--- NOTE | 2017-12-03 11:01 | Progress Note ---
Subjective - Reason for Consult Consult date: 12/03/17 Reason for consult: Psychiatry Follow-up - Chief Complaint Chief complaint: "My situation isn't good" 42-year-old -[place] male who presents to the emergency room after a suicide attempt. The patient has a past psychiatric history of schizoaffective disorder bipolar type. Today the patient is cooperative during the assessment. He stated that his situation hasn't changed and still don't want to live. He stated that he does not want to take Seroquel because he gained lots of weight in the past on that medication. He denies HI's and AVH's. He stated not being able to initiate sleep. Mental Status Exam - Vital signs Last Vital Signs Temp 98.9 F 12/02/17 21:00 Pulse 68 12/02/17 21:00 Resp 18 12/02/17 21:00 BP 149/88 12/02/17 21:00 Pulse Ox 99 12/02/17 21:00 - Exam Narrative exam: MSE: Appearance: cooperative Behavior: regular eye contact Speech: regular rate and tone Mood: "well" Affect: congruent to mood Thought Process: circumstantial Thought Content: denies HI's and AVH's Motor Activity: sitting up in bed Cognition: A/O x 3 Insight: variable Judgment: variable Assessment and Plan Impression: Hx of Schizoaffective DO. Substance Use DO (cocaine). Today the patient is cooperative during the assessment. The patient endorses SI's. DDx: R/O Bipolar DO, R/O MDD Recommendation/Plan: Continue 1013 with placement to inpatient psy services. Start Geodon 40 mg PO HS for mood. Discussed possible metabolic side effects of Geodon with patient. If patient does not get any sleep overnight, will consider Trazodone PRN. Discussed generalized coping skills with patient.
[2017-12-04] MEDS: GEODON PO SCH ×2 (00:44→22:24)
--- NOTE | 2017-12-04 13:09 | Progress Note ---
Subjective - Reason for Consult Consult date: 12/04/17 Reason for consult: Psychiatric Follow-up Evaluation - Chief Complaint Chief complaint: "I still feel bad." Patient is a 42-year-old -[place] male who presents to the emergency room after a suicide attempt. He states " I'm okay. I still feel bad about all of this. This is not me. I feel like my life over. I feel so low. " Patient reports increase appetite with medication. During the assessment patient is tearful and hopeless. He denies delusions and auditory/visual hallucinations. Mental Status Exam - Vital signs Last Vital Signs Temp 99.3 F 12/03/17 19:25 Pulse 79 12/03/17 19:25 Resp 17 12/03/17 19:25 BP 144/92 12/03/17 19:25 Pulse Ox 99 12/03/17 19:25 - Exam Narrative exam: Mental Status Exam: General Appearance: Casually dressed- hospital gown Eye Contact: Intermittent Attitude/Behavior: Cooperative Sensorium: Clear Orientation: Alert and oriented x 4 (person, place, time, and situation) Psychomotor & Musculoskeletal Activity: Sitting up in bed Mood: " Excessive worrying." Anxious, depressed, labile-less, and irritable-less Affect: Constricted Speech/Language: Normal Rate and Tone Concentration/Attention: Impaired Thought process: Circumstantial Thought content: Reality Oriented Perception: WNL -Patient denies Suicidal ideation/plan: Patient denies Homicidal ideation/plan: Patient denies Assessment and Plan Impression: Israel is a 42 year old male who presents to the emergency room after a suicide attempt. PPHx of Schizoaffective Disorder and MDD. Today he presents depressed, anxious, and less irritable. During the assessment patient is tearful and endorses feelings of hopelessness. He denies A /VH, delusions, and SI/HI. DDx: MDD, recurrent, severe with psychotic features r/o Schizoaffective Disorder , Bipolar Type; Cocaine Use Disorder Recommendations/Plan: 1. Continue 1013 and assist with placement to an inpatient psychiatric facility. Will reassess in 24 hours. 2. Continue Geodon 40mg po QHS mood. Educated patient on possible metabolic side effects. Will increase at a later date if symptoms persist or do not improve. 3. Discussed partial hospitalization (PHP) once discharged. Patient is interested in PHP. 4. Discussed effective coping skills and the importance of implementation.
[2017-12-05 07:05] LABS: Alanine Aminotransferase 65 units/L (7-56); BUN/Creatinine Ratio 13; Blood Urea Nitrogen 9 mg/dL (9-20); Calcium 8.3 mg/dL (8.4-10.2); Hemolysis Index 18
--- NOTE | 2017-12-05 10:20 | Progress Note ---
Subjective - Reason for Consult Consult date: 12/05/17 Reason for consult: Psychiatry Follow-up - Chief Complaint Chief complaint: "I want treatment" 42-year-old -Citizen Of [place] male who presents to the emergency room after a suicide attempt. The patient has a past psychiatric history of schizoaffective disorder bipolar type. Today the patient is calm and cooperative during the assessment. He stated that he feel better "mentally" and want outpatient psy services once discharged. This is the first day the patient denies SI's. He denies HI's and AVH's. He stated that he cannot initiate sleep. He denies any side effects of his medication. Mental Status Exam - Vital signs Last Vital Signs Temp 98.3 F 12/05/17 10:00 Pulse 84 12/05/17 10:00 Resp 18 12/05/17 10:01 BP 139/81 12/05/17 10:00 Pulse Ox 99 12/05/17 10:01 - Exam Narrative exam: MSE: Appearance: calm, cooperative Behavior: regular eye contact Speech: regular rate and tone Mood: "okay" Affect: congruent to mood Thought Process: circumstantial Thought Content: denies SI/HI's and AVH's Motor Activity: sitting up in bed Cognition: A/O x 3 Insight: fair Judgment: fair Assessment and Plan Impression: Hx of Schizoaffective DO. Substance Use DO (cocaine). Today the patient is cooperative during the assessment. DDx: R/O Bipolar DO, R/O MDD Recommendation/Plan: Evaluate 1013 in 24 hours to determine proper dispo. Continue Geodon 40 mg PO HS for mood and Start Trazodone 50 mg PO HS PRN for sleep. Discussed possible metabolic side effects of Geodon with patient. Discussed possible suicidality/medication induced helena/priapism with patient reference Trazodone. Discussed generalized coping skills with patient.
[2017-12-05 19:06] LABS: Alanine Aminotransferase 64 units/L (7-56)
[2017-12-05 19:08] LABS: Bilirubin,Direct < 0.2 mg/dL (0-0.2)
[2017-12-05] MEDS ORDERED: DESYREL PO PRN (22:00)
[2017-12-05] MEDS: GEODON PO SCH (22:29)
--- NOTE | 2017-12-06 11:51 | Progress Note ---
Subjective - Reason for Consult Consult date: 12/06/17 Reason for consult: Psychiatry Follow-up - Chief Complaint Chief complaint: "I will do better" 42-year-old -Irish male who presents to the emergency room after a suicide attempt. The patient has a past psychiatric history of schizoaffective disorder bipolar type. Today the patient is calm and cooperative during the assessment. He continues to deny SI's when asked. He is eager to attend [facility]. He denies HI's and AVH's. He denies any side effects of his medications. Mental Status Exam - Vital signs Last Vital Signs Temp 98.5 F 12/05/17 19:17 Pulse 80 12/05/17 19:17 Resp 18 12/05/17 19:36 BP 144/97 12/05/17 19:17 Pulse Ox 98 12/05/17 19:36 - Exam Narrative exam: MSE: Appearance: calm, cooperative Behavior: regular eye contact Speech: regular rate and tone Mood: "okay" Affect: congruent to mood Thought Process: linear Thought Content: denies SI/HI's and AVH's Motor Activity: sitting up in bed Cognition: A/O x 3 Insight: appropriate Judgment: appropriate Assessment and Plan Impression: Hx of Schizoaffective DO. Substance Use DO (cocaine). Today the patient is cooperative during the assessment. DDx: R/O Bipolar DO, R/O MDD Recommendation/Plan: Rescind 1013. Continue Geodon 40 mg PO HS for mood and Trazodone 50 mg PO HS PRN for sleep. Discussed possible metabolic side effects of Geodon with patient. Discussed possible suicidality/medication induced helena/ priapism with patient reference Trazodone. Discussed generalized coping skills with patient.
[2017-12-06 13:07] VITALS: BP 114/90
== END 2017-12-06 14:18 ==
LOC: EEVIPCON 12:04 → ED 12:04
DX: R45.851 Suicidal ideations (principal); F25.9 Schizoaffective disorder, unspecified; F32.9 Major depressive disorder, single episode, unspecified; I10 Essential (primary) hypertension; F17.200 Nicotine dependence, unspecified, uncomplicated; F12.10 Cannabis abuse, uncomplicated; F14.10 Cocaine abuse, uncomplicated
CPT/HCPCS: 36415; 80048; 80053; 80074; 80307; 81001; 82550; 84484; 85025; 93005; 93010; 96360; 99284; G0480; J7030; 80320

== ENCOUNTER 2017-12-08 03:41 | Emergency (ER) | payer MEDICARE ==
[2017-12-08] MEDS ORDERED: PROVENTIL IH ONE ×2 (04:25→05:12)
--- NOTE | 2017-12-08 05:36 | XRay Report ---
FINAL REPORT PROCEDURE: XR CHEST ROUTINE 2V TECHNIQUE: A portable AP chest radiograph was obtained at 12/08/2017 05:20 (EST) . CPT 13409 HISTORY: productive cough COMPARISON: No prior studies are available for comparison. FINDINGS: Heart: Normal. Mediastinum/Vessels: Normal. Lungs/Pleural space: Lungs are clear. There are no infiltrates, effusions or pneumothoraces. Bony thorax: No acute osseous abnormality. Life support devices: None. IMPRESSION: No acute cardiopulmonary abnormality.
[2017-12-08 05:39] LABS: Basophils % (Auto) 0.5 % (0.0-1.8); Eosinophils % (Auto) 0.1 % (0.0-4.3); Hematocrit 41.4 % (35.5-45.6); Hemoglobin 14.1 gm/dl (11.8-15.2); Lymphocytes # (Auto) 2.7 K/mm3 (1.2-5.4); Lymphocytes % (Auto) 36.5 % (13.4-35.0); Mean Corpuscular HGB Conc 34 % (32-34); Mean Corpuscular Hemoglobin 28 pg (28-32); Mean Corpuscular Volume 83 fl (84-94); Monocytes # (Auto) 0.8 K/mm3 (0.0-0.8); Platelet Count 194 K/mm3 (140-440); Red Blood Count 5.02 M/mm3 (3.65-5.03); Red Cell Distribution Width 14.2 % (13.2-15.2)
[2017-12-08 05:41] LABS: Amphetamine Screen,Urine PRESUMPTIVE NEGATIVE; Benzodiazepines Screen,Urine PRESUMPTIVE NEGATIVE; Cannabinoid Screen,Urine PRESUMPTIVE NEGATIVE; Methadone Screen,Urine PRESUMPTIVE NEGATIVE; Opiate Screen,Urine PRESUMPTIVE NEGATIVE
[2017-12-08 05:47] LABS: Bilirubin,Urine NEG (Negative); Blood,Urine NEG (Negative); Color,Urine Yellow (Yellow); Mucus,Urine FEW /HPF; Protein,Urine <15 mg/dL mg/dL (Negative); Urobilinogen,Urine < 2.0 mg/dL (<2.0)
[2017-12-08 05:54] LABS: BUN/Creatinine Ratio 16; Blood Urea Nitrogen 13 mg/dL (9-20); Calcium 8.8 mg/dL (8.4-10.2); Hemolysis Index 7
[2017-12-08 06:09] LABS: Cocaine Screen,Urine PRESUMPTIVE POSITIVE
--- NOTE | 2017-12-08 11:23 | Emergency Department Report ---
ED Medical Clearance HPI - General Chief complaint: Medical Clearance Stated complaint: MEDICAL CLEARANCE Time Seen by Provider: 12/08/17 11:18 Source: patient Mode of arrival: Ambulatory - History of Present Illness Initial comments: 42-year-old male past medical history HIV, hepatitis C, hypertension presents for complaint of one week of sinus congestion and dry cough. Patient states that he has a history of childhood asthma and seasonal allergies as well. States he is a smoker. Patient is awake alert and oriented 3 no audible wheezing or stridor. Patient states that because he was out past his [facility] will not accept him back without medical clearance. Patient states he feels significantly better after one nebulizer treatment. is requesting refill on albuterol inhaler. Denies chest pain fever chills nausea vomiting abdominal pain. Patient is nontoxic appearing. States he has had nasal congestion denies purulent discharge from nose. MD Complaint: medical clearance request Onset/Timin -: week(s) Treatments Prior to Arrival: none Home medications: Home Medications Medication Instructions Recorded Confirmed Last Taken Hydrochlorothiazide 12.5 mg PO DAILY 11/30/17 11/30/17 Unknown Prazosin HCl 2 mg PO DAILY 11/30/17 11/30/17 Unknown Sertraline HCl 50 mg PO DAILY 11/30/17 11/30/17 Unknown Trazodone HCl 200 mg PO QHS 11/30/17 11/30/17 Unknown Previous Rx's Medication Instructions Recorded Last Taken Type Albuterol Sulfate [Ventolin Hfa] 1 puff IH Q4H PRN #1 hfa.aer.ad 12/08/17 Unknown Rx Fluticasone [Flonase] 1 spray NS QDAY PRN #1 bottle 12/08/17 Unknown Rx Loratadine [Claritin] 10 mg PO QDAY PRN #14 tablet 12/08/17 Unknown Rx Allergies/Adverse reactions: Allergies Allergy/AdvReac Type Severity Reaction Status Date / Time ibuprofen Allergy Shortness Verified 11/16/17 03:41 of Breath ED Review of Systems ROS: Stated complaint: MEDICAL CLEARANCE Other details as noted in HPI Constitutional: denies: chills, fever Eyes: denies: eye pain, eye discharge, vision change ENT: congestion (nasal congestion). denies: ear pain, throat pain Respiratory: cough (1 week of intermittent cough as per patient was productive but is no longer productive). denies: shortness of breath, wheezing Cardiovascular: denies: chest pain, palpitations Endocrine: no symptoms reported Gastrointestinal: denies: abdominal pain, nausea, diarrhea Genitourinary: denies: urgency, dysuria Musculoskeletal: denies: back pain, joint swelling, arthralgia Skin: denies: rash, lesions Neurological: denies: headache, weakness, paresthesias Psychiatric: denies: anxiety, depression Hematological/Lymphatic: denies: easy bleeding, easy bruising ED Past Medical Hx - Past Medical History Hx Hypertension: Yes Hx Liver Disease: Yes (Hep c) Hx Psychiatric Treatment: Yes (depression) Hx HIV: Yes - Surgical History Additional Surgical History: boil in rectal area - Social History Smoking Status: Current Every Day Smoker Substance Use Type: None - Medications Home Medications: Home Medications Medication Instructions Recorded Confirmed Last Taken Type Hydrochlorothiazide 12.5 mg PO DAILY 11/30/17 11/30/17 Unknown History Prazosin HCl 2 mg PO DAILY 11/30/17 11/30/17 Unknown History Sertraline HCl 50 mg PO DAILY 11/30/17 11/30/17 Unknown History Trazodone HCl 200 mg PO QHS 11/30/17 11/30/17 Unknown History Albuterol Sulfate [Ventolin Hfa] 1 puff IH Q4H PRN #1 hfa.aer.ad 12/08/17 Unknown Rx Fluticasone [Flonase] 1 spray NS QDAY PRN #1 bottle 12/08/17 Unknown Rx Loratadine [Claritin] 10 mg PO QDAY PRN #14 tablet 12/08/17 Unknown Rx ED Physical Exam - General Limitations: No Limitations General appearance: alert, in no apparent distress - Head Head exam: Present: atraumatic, normocephalic - Eye Eye exam: Present: normal appearance, PERRL, EOMI - ENT ENT exam: Present: mucous membranes moist - Neck Neck exam: Present: normal inspection - Respiratory Respiratory exam: Present: normal lung sounds bilaterally. Absent: respiratory distress - Cardiovascular Cardiovascular Exam: Present: regular rate, normal rhythm. Absent: systolic murmur, diastolic murmur, rubs, gallop - GI/Abdominal GI/Abdominal exam: Present: soft, normal bowel sounds - Rectal Rectal exam: Present: deferred - Extremities Exam Extremities exam: Present: normal inspection - Back Exam Back exam: Present: normal inspection - Neurological Exam Neurological exam: Present: alert, oriented X3, CN II-XII intact, normal gait - Psychiatric Psychiatric exam: Present: normal affect, normal mood - Skin Skin exam: Present: warm, dry, intact, normal color. Absent: rash ED Course Vital Signs 12/08/17 12/08/17 04:09 05:00 Temperature 98.2 F 98.2 F Pulse Rate 98 H 93 H Respiratory 18 20 Rate Blood Pressure 149/97 149/97 O2 Sat by Pulse 98 100 Oximetry ED Medical Decision Making - Lab Data Result diagrams: 12/08/17 05:17 12/08/17 05:17 - Medical Decision Making A/P: Reactive airway disease 1- albuterol inhaler, Claritin, Flonase 2- I confirmed with [facility] program specialist that [facility] policy is that patient' s come to [facility] ED for medical clearance before being allowed back [facility] 3-patient is aware that he has tested positive for cocaine. States that his behavioral health specialists at [place] are aware of this 4- vital signs stable for discharge. Chest x-ray normal, labs unremarkable ED Disposition Clinical Impression: Encounter for physical examination, Reactive airway disease that is not asthma Disposition: DC-01 TO HOME OR SELFCARE Is pt being admited?: No Does the pt Need Aspirin: No Condition: Stable Instructions: Reactive Airways Disease (ED) Additional Instructions: Patient can return to [facility] today Prescriptions: Albuterol Sulfate [Ventolin Hfa] 1 puff IH Q4H PRN #1 hfa.aer.ad PRN Reason: Wheezing Fluticasone [Flonase] 1 spray NS QDAY PRN #1 bottle PRN Reason: Congestion Loratadine [Claritin] 10 mg PO QDAY PRN #14 tablet PRN Reason: Congestion Referrals: [facility] [Provider Group] - 3-5 Days Forms: Work/School Release Form(ED) Time of Disposition: 11:40
[2017-12-08 11:51] VITALS: BP 157/100
== END 2017-12-08 11:50 | disposition home or self-care (01) ==
LOC: ED 03:41
DX: J45.909 Unspecified asthma, uncomplicated (principal); I10 Essential (primary) hypertension; F17.200 Nicotine dependence, unspecified, uncomplicated
CPT/HCPCS: 36415; 71046; 80048; 80307; 81001; 85025; 99284; G0480; 80320

== ENCOUNTER 2019-04-13 08:50 | Outpatient (CLI) | payer OTHER | END 2019-04-13 08:51 | disposition home or self-care (01) | LOC: LAB 08:50 | PROVIDERS: ATTEND Internal Medicine | DX: F32.9 Major depressive disorder, single episode, unspecified (principal); I10 Essential (primary) hypertension | CPT/HCPCS: 36415; 82024 ==